=== PATIENT | male | born 1945 | race Caucasian/White ===

== ENCOUNTER 2016-08-26 12:04 | Inpatient (IN) | payer MEDICARE ==
[~2016-08-26] VITALS: Ht 180.3 cm; Wt 96.1 kg
--- NOTE | ~2016-08-26 | ECH ---
Transthoracic Echocardiography Report (TTE) Demographics Patient Name TAMAR MURRAY Date of Study 08/27/2016 Patient Number [id number] Visit Number [id number] Date of 1945 Room Number 314 Accession Number [id number] Gender Male Age 70 year(s) Referring King Santy Green MD Cocoa Mill Operator Lisa Chavez Physician Valdemar Hair RDCS, MD Physician Interpreting Phoebe Salguero MD Business Performance Manager Physician Supervising Ordering Physician King Santy Green MD, MD/MLP Nurse Stress Clay Digger Conclusions Summary Technically difficult exam. The estimated left ventricular ejection fraction is 50-55%. Moderate to severely dilated right ventricle with normal function. The left atrium is mildly dilated by LA volume index measurement. The right atrium is severely dilated. Procedure Type of Study TTE procedure:Echo Limited SF. Procedure Date Date: 08/27/2016 Start: 11:43 Technical Quality: Fair due to poor acoustical window. Indications:Elevated Troponin, Atrial fibrillation and cardiomyopathy, unspecified. Appropriate Use Criteria: 9 Height: 71 inches Weight: 204 pounds BSA: 2.13 m Rhythm: Atrial fibrillation HR: 114 bpm BP: 106/67 mmHg M-Mode/2D Measurements LV Diastolic Dimension: 4.5 cm LV Systolic Dimension: 3.4 cm LV Septum Diastolic: 0.8 cm LV PW Diastolic: 0.83 cm AO Root Dimension: 3.09 cm LA Dimension: 4.66 cm RV Diastolic Dimension: 3.61 cm LA volume: 84.96 ml LA volume index: 40 ml/m RV Base: 5 cm RV Mid: 3.1 cm TAPSE: 2.5 cm Doppler Measurements Estimated RAP:10 mmHg RA Area: 32.74 cm Findings Left Ventricle Normal left ventricle size and function. Right Ventricle Moderate to severely dilated right ventricle with normal function. Left Atrium The left atrium is mildly dilated by LA volume index measurement. Right Atrium The right atrium is severely dilated. Mitral Valve Moderate mitral annular calcification. Aortic Valve The aortic valve is mildly sclerotic. Tricuspid Valve Normal tricuspid valve structure and function. Pulmonic Valve The pulmonic valve is not well visualized. Pericardial Effusion No evidence of pericardial effusion. Miscellaneous Visualized portions of the aortic root and ascending aorta appear normal in size. Pleural Effusion No evidence of pleural effusion. Signature
[~2016-08-26 12:04] MED LIST: BACTRIM DS DPS1 TAB PO; BYSTOLIC5 MG PO; CALTRATE-600 D600 MG PO; CLARITIN DPS10 MG PO; CORTEF DPS5 MG PO; DULERA 200/58.8 GM IH; ESTER-C 1,0001 EACH PO; HABITROL DPS21 MG TD; HUMALOG100 UNIT/1 SQ; HYDROCODONE 10M10 MG PO; INCRUSE ELLI62.5 MCG IH; KEFLEX-DPS500 MG PO; LAMISIL250 MG PO; LASIX DPS20 MG PO; LEUTIN PO; MAG-OX400 MG PO; OXY-CONTIN10 MG PO; PRILOSEC DPS20 MG PO; SYMBICORT160 MCG/6 IH; THERAPEUTIC MUL1 TAB PO; TYLENOL DPS325 MG PO; VITAMIN D-32000 UNI1 PO; ZESTRIL DPS10 MG PO; ZYLOPRIM-DPS300 MG PO
--- NOTE | 2016-08-28 08:16 | ER ---
ADMIT: 08/26/2016 RM/LOC: 314 [facility] MR#: [id number] 2620 [facility] [address] [place] [phone] [place] [address] Emergency Room Report SEX: M AGE: 70 : 1945 DATE: 08/26/2016 ADDENDUM: A 70-year-old white male coming in by private vehicle, actually a [employer] type of camper that the drove up in a parking lot. She could not get him out. We could not get him out. Fire Department called to help and transport him to the room. His states he has been weak and kind of tired recently. We got in here. He was hypoxic with low blood pressure. We started to correct that. He is little tachycardic as well. Remarkably, his blood gas were too bad at 7.34, pCO2 of 55, PO2 of 133. He does have COPD and continues to smoke. His white count was 10, hemoglobin is 12.2. His lactate was normal at this time. However, he was in acute renal failure at creatinine of 6.1 as well as probably a non-STEMI with a troponin of 1.73. At this time, he also could not entirely rule out sepsis. We fluid resuscitated him, added Levophed and then gave him Zosyn and vancomycin. At this time, he is still full code. I spoke with Dr. Aldrich who advised the family of the seriousness and his critical condition. BiPAP is on at 105, and he will be admitted to the unit. CONDITION ON DISCHARGE: Critical. Romel Tilley MD/ annalise JOB #: [id number] CC: Romel Aldrich MD, Attending Physician Romel Aldrich MD, Family Physician
--- NOTE | 2016-08-29 15:28 | CO ---
ADMIT: 08/26/2016 RM/LOC: 314 [facility] MR#: [id number] [address] [id number] [place] [id number] Consultation SEX: M AGE: 70 : 1945 DATE OF CONSULTATION: 08/27/2016 ATTENDING PHYSICIAN: Romel Aldrich CONSULTING PHYSICIAN: Christi Gusman MD REASON FOR CONSULTATION: Acute kidney injury. HISTORY OF PRESENT ILLNESS: The patient is a 70-year-old gentleman, who was brought to the emergency room yesterday by his after he was found to be unresponsive/hyporesponsive. He was noted to be in shock and was profoundly hypotensive and required pressor support. His pressors have been off earlier this morning. He is originally from around the [place] area. They were down at [facility] this past week. He was in his camper and did not have his air conditioning working too well. His oral intake had been severely decreased as well. No documented fevers prior to coming to the hospital. He had been eating and drinking poorly as mentioned above and when he was found to have a change in his mental status, his brought him to the hospital. He is being treated with antibiotics. His blood pressures are somewhat better and he is off pressors now. He was also noted to have elevated cardiac enzymes and Cardiology is following him for the same. He has a Ochoa catheter in situ and is making some urine now. He was intubated but he is currently on BiPAP. He reports that his breathing is fair. He is very thirsty. He denies any anginal symptoms. The Ochoa catheter is uncomfortable to him but denies any urinary complaints prior to being hospitalized. Denies any skin rash. He has some appetite and would like to eat if possible. He otherwise feels weak, but denies any dizziness or lightheadedness. Denies any focal neurologic complaints. REVIEW OF SYSTEMS: A complete review of systems is negative in detail except as mentioned in history of present illness above. PAST MEDICAL HISTORY: 1. Klinefelter's disease. 2. Parkinson's disease. 3. Chronic pain. 4. Bipolar disorder. 5. Dyslipidemia. 6. Hypertension. 7. COPD. 8. Tobacco abuse. 9. Squamous cell carcinoma of the lung. 10.Chronic atrial fibrillation. 11.DVTs and pulmonary embolism. 12.Cervical spine fusion. 13.GERD. 14.Restless legs syndrome. 15.Gout. 16.Adrenal insufficiency. ADMIT: 08/26/2016 RM/LOC: 314 [facility] MR#: [id number] [address] [place] [id number] TAMAR MURRAY [place] [address] Consultation SEX: M AGE: 70 : 1945 MEDICATIONS: Reviewed in the chart. ALLERGIES: OXYCODONE AND BEE STINGS. SOCIAL HISTORY: Lives with his . He is . He continues to smoke cigarettes on a daily basis. He reports having a beer over the weekend. Denies any recreational drug use. FAMILY HISTORY: Mother has kidney disease-nature and etiology unknown. Nobody in the family has had to be on renal replacement therapy. PHYSICAL EXAMINATION: VITAL SIGNS: Temperature 98 Fahrenheit, pulse 103, blood pressure 96/67. His in's and out's for the last 24 hours have been almost 6 L of fluid and 750 mL of urine. GENERAL: He is wearing BiPAP and is tachypneic. HEENT: Head is nontraumatic and normocephalic. Pale conjunctivae. NECK: Supple without any JVD. CVS: Irregular S1, S2 heard. No rubs, murmurs, or gallops. ABDOMEN: Soft, nontender. EXTREMITIES: No edema. CHEST: Clear to auscultation but breath sounds are decreased. NEUROLOGIC: He is alert and oriented. He is able to move all his extremities. PSYCHIATRIC: He is very anxious. MUSCULOSKELETAL: Major joints within normal. Range of motion within normal limits. LABORATORY DATA: Reviewed. His BMP another labs from this morning are pending, but his creatinine yesterday was 6.1 with a potassium of 4.6, CO2 of 32, and sodium 144. His ABG this morning shows a pH of 7.385, pCO2 of 36.2 with a PO2 of 82.9. His calcium yesterday was 9.2 and a phosphorus of 8.5. His CK was elevated to 1496 and his troponin was elevated to 1.73. His hemoglobin was 8.6. Urinalysis with 1+ protein, negative blood, and 1+ leukocyte esterase. He had multiple hyaline casts in his urine. Blood cultures x2 were drawn yesterday and then he had one out of two Staphylococcus aureus. ASSESSMENT AND PLAN: ADMIT: 08/26/2016 RM/LOC: 314 [facility] MR#: [id number] [address] [place] [phone] TAMAR MURRAY [address] [place] [address] [place] [address] Consultation SEX: M AGE: 70 : 1945 1. Acute kidney injury-this is most likely secondary to ischemic acute tubular necrosis. His labs are pending from this morning. I will monitor his kidney function, electrolytes as well as acid base status closely. There is no emergent indication for renal replacement therapy, but should their view, him and his were agreeable to dialysis if needed. Continue supportive care in the meantime, maintain hemodynamics and avoid nephrotoxins such as NSAIDs, IV contrast, or Fleet enemas. 2. Hyperphosphatemia-in the setting of renal failure. Monitor for now. 3. Septic shock/lactic acidosis-he is on antibiotics and these are being dosed by pharmacy at this time. Thank you for this consultation. Please do not hesitate to contact with any questions. Christi Gusman MD/ annalise JOB #: [id number] CC: Romel Aldrich, Attending Physician Romel Aldrich, Family Physician
--- NOTE | 2016-08-31 13:39 | CO ---
ADMIT: 08/26/2016 RM/LOC: 314 [facility] MR#: [id number] 2620 [facility] [address] [place] [id number] [place] [address] Consultation SEX: M AGE: 70 : 1945 DATE OF CONSULTATION: 08/27/2016 ATTENDING PHYSICIAN: Romel Aldrich CONSULTING PHYSICIAN: Ramya Mcgrath APRN TIME IN: 1300 hours. TIME OUT: 1345 hours. REASON FOR CONSULTATION: Supportive care consultation was requested by Dr. Aldrich for discussion of goals for care. HISTORY OF PRESENT ILLNESS: Mr. Tyson is a 70-year-old male with history of Parkinson disease, bipolar disorder, as well as COPD and a history of squamous cell lung cancer which he states is in remission. He was admitted back in 12/2015 after having a new CVA. At that time, he was also found to have cardiomyopathy with an EF of 25%. He does have a repeat echocardiogram planned for today. He was admitted on 08/26 after being found unresponsive by his . 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 He had been acting bizarre and was eventually found unresponsive. Evaluation in the emergency room revealed acute on chronic respiratory failure with COPD exacerbation. He did screen positive for sepsis and blood cultures are positive. Additionally, he is in acute renal failure. Cardiology is following for elevated troponin as well as his history of cardiomyopathy. Apparently, the patient refused intubation on admission. He has been wearing BiPAP as needed. He has actually improved today and is tolerating wearing the nasal cannula for periods of time. Due to his complexities, Supportive Care consultation was requested to discuss goals for care. In terms of advanced directives, the patient is a full code. The patient's durable [id number] for healthcare is his , Tanya tyson, whose phone number is [phone] and [phone]. The patient also has a living will. Symptomatically, the patient is comfortable. He denies any major complaints. He is weak and debilitated. PAST MEDICAL HISTORY: Parkinson disease, Klinefelter disease, chronic pain, bipolar disorder, hyperlipidemia, hypertension, COPD, squamous cell carcinoma of the lung, persistent tobacco abuse, chronic atrial fibrillation, DVT and PE, cervical spine fusion, GERD, restless legs syndrome, gout, adrenal insufficiency. ALLERGIES: THE PATIENT IS ALLERGIC TO OXYCODONE AND BEE STING. CURRENT MEDICATIONS: Please see the patient's MAR for specific routes and dosages. Her current medications are as follows: 1. Levaquin. ADMIT: 08/26/2016 RM/LOC: 314 [facility] MR#: [id number] [address] [place] [phone] TAMAR TYSON [address] [place] [address] Consultation SEX: M AGE: 70 : 1945 2. Zosyn. 3. Xarelto. 4. Nitro-Bid. 5. Levophed. 6. DuoNeb. 7. Neosporin. 8. Solu-Medrol. 9. Tylenol. 10.Nitrostat. SOCIAL HISTORY: The patient is . He does not have children. He is a heavy smoker. He does not use illicit drugs. He does not drink alcohol currently. FAMILY HISTORY: Reviewed and positive for carcinoid tumor in his father. FUNCTIONAL REVIEW: Prior to his hospital stay, he was at home. His helped him with ADLs occasionally. It sounds like he could still drive a motorcycle. His palliative performance scale prior to admission was around 60%. Currently, he is in bed. He is mainly assistance. He is tired. His current palliative performance scale is 40%. REVIEW OF SYSTEMS: A 10-point review of systems was completed and other than those pertinent positives and negatives mentioned in the HPI, it is negative. PHYSICAL EXAMINATION: GENERAL: The patient is examined in the bed. He is in no acute distress. VITAL SIGNS: Temperature 98.0, pulse 107, respirations 21, blood pressure 109/67, and oxygen 94% on oxygen via nasal cannula. HEENT: Head is normocephalic. Pupils are 3 mm and brisk. Oral mucosa pink and moist. Fair dentition. NECK: Supple. RESPIRATORY: Respirations are equal, nonlabored at rest. LUNGS: Coarse throughout. CARDIOVASCULAR: Rate and rhythm regular without murmurs, rubs, or gallops. GASTROINTESTINAL: Soft and nontender. Bowel sounds are positive. MUSCULOSKELETAL: Generalized weakness. INTEGUMENTARY: Skin turgor is fair. No obvious rashes or wounds noted. NEUROLOGIC: Alert and oriented x3. He will follow commands. PSYCHIATRIC: Calm and cooperative. No agitation noted. IMPRESSION: 1. Physical debility. 2. Fatigue. 3. Malaise. 4. Moderate protein-calorie malnutrition. 5. Respiratory failure. 6. Chronic obstructive pulmonary disease with acute exacerbation. ADMIT: 08/26/2016 RM/LOC: 314 [facility] MR#: [id number] [address] [place] [id number] TAMAR TYSON [address] [place], [place] [address] [address] Consultation SEX: M AGE: 70 : 1945 7. Acute renal failure. 8. Sepsis. 9. Elevated troponin. 10.Parkinson disease. 11.Bipolar disorder. 12.History of squamous cell lung cancer which is stable per the patient report. 13.History of cerebrovascular accident. 14.Palliative care. 15.The patient is a full code. PLAN: 1. I was able to meet with the patient and his at the bedside. We reviewed his overall status and goals for the time ahead. At this point, the goal per the patient is ongoing aggressive care with hope of improvement with eventually being able to get back home where he lives with his . He does agree to ongoing discussions with supportive care pending his status. He is aware that he is very sick and that he has a road ahead of him to get back to where he was. 2. We did review code status at length including the burden versus benefit of full code status versus do not resuscitate/do not intubate status. The patient is not thrilled with the idea of being intubated, however, he does state that he would not want to . At this time, he directs a full code status including intubation, CPR, and defibrillation. I am very clear with him that these interventions may be quite difficult for him to withstand given his multiple medical issues, and he verbalizes understanding of this. The patient's is prepared to make to have decisions if needed should he be intubated and not be able to get off the ventilator. The patient is very clear that he would not want to live correction on ventilator support. 3. It is of note that the Supportive Care TAG PRESS OPERATOR is unavailable tomorrow, but will follow up with the patient on 08/29when I return. We would like to thank Dr. Aldrich for the invitation to participate in this patient's care. Total consultation time was 45 minutes from 1300 hours to 1345 hours 30 minutes from 1305 hours to 1335 hours spent [id number] with the patient and family discussing goals for care and providing counseling and support. The plan of care was discussed with nursing. Ramya Mcgrath APRN/ yomil JOB #: [id number] CC: Romel Aldrich, Attending Physician Romel Aldrich, Family Physician
--- NOTE | 2016-08-31 16:25 | CO ---
ADMIT: 08/26/2016 RM/LOC: 314 [facility] MR#: [id number] [address] [address] [place] [address] Consultation SEX: M AGE: 70 : 1945 DATE OF CONSULTATION: 08/27/2016 ATTENDING PHYSICIAN: Romel Aldrich CONSULTING PHYSICIAN: Santy Brock MD CONSULTING PHYSICIAN: Romel Aldrich MD REASON FOR CONSULT: Elevated troponin. This is Courtney Ge RN, scribing for Dr. Santy Brock. HISTORY OF PRESENT ILLNESS: Rui is a pleasant 70-year-old gentleman, I have been asked to see in Cardiology consultation by Dr. Aldrich for elevated troponin. He was seen in hospital in December by myself for embolic stroke and has history of DVT/PE along with permanent atrial fibrillation. In December, he had cardiomyopathy with an EF of 25% to 30%. He also has history of hypertension, hyperlipidemia, and ongoing tobacco use. He then followed up with Dr. Asaf Durand in [place]. In January repeat echocardiogram showed EF of 50%. He was last seen in [place] by Dr. Asaf Durand in April. At that time, he had reported, he was tolerating his medications well and he had good fluid status and was ordered to follow up in four months with 24 hour Holter prior. 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 Apparently, he had not been using his oxygen, which he is O2 dependent with his COPD history. Because the concentrator was not working and he was also continuing smoking and there was question of whether he was taking his medications. His said he was. On Saturday, he was confused and so by the late Saturday night, early Saturday morning, he laid down in his camper were there was no air conditioning and had decreased level of responsiveness. His states that for over 30 hours, he did not eat or drink anything. Did not take any medications. He was not using oxygen and was not responding much. When they were getting ready to take the camper back to where they live, she states that he still was not responding to her and so she ended up calling EMS, who brought them into the hospital. On arrival to the hospital, yesterday's labs demonstrated creatinine of 6.1 with a BUN of 43. Initial cardiac enzymes are elevated with a CK of 1496, MB of 16.5 and troponin of 1.73. Labs were repeated this morning and are pending. He also had positive blood cultures x1 for gram positive cocci. He was hypotensive on arrival, requiring IV medication for support, which has been discontinued and he has maintained good blood pressure. Since that time. He is mildly tachycardic with heart rates in the 110s. He is currently on BiPAP. He denies any chest pain, increased shortness of breath, palpitations. Currently, he did feel like he had palpitations in the camper. He denies any syncope but does state that he was asleep for over 30 hours recently. EKG did not show any significant ST-T changes. He was in atrial fibrillation, which he has permanent atrial fibrillation for. ADMIT: 08/26/2016 RM/LOC: 314 [facility] MR#: [id number] [address] [place] [id number] [place] [facility] [place] [address] Consultation SEX: M AGE: 70 : 1945 PAST MEDICAL HISTORY: Prior cardiomyopathy with improved ejection fraction, permanent atrial fibrillation, multiple DVT and history of PE, tobacco use, hypertension, hyperlipidemia, gastroesophageal reflux disease, cervical spine stenosis, osteoarthritis, gout, Klinefelter syndrome, squamous cell lung cancer diagnosed in 2010 on the right, CVA in December of 2015, Parkinson's, bipolar disorder, severe COPD, oxygen dependent. PAST SURGICAL HISTORY: Includes spine fusion and bilateral total knee arthroplasty. ALLERGIES: OXYCODONE. MEDICATIONS: Current medications include DuoNeb q.6 hours nebulizer, Levaquin IV 750 mg IV q.8 hours, Solu-Medrol 125 q.8 hours, IV Zosyn 3.375 g IV q.12 hours. FAMILY HISTORY: Positive family history of dad having carcinoid tumor. No family history of coronary artery disease noted. SOCIAL HISTORY: Rui is . He lives at home with his up in [place]. He follows with Dr. Polo in [place]. He has no history of drug use or alcohol use. Denies any excessive caffeine. He does smoke cigarettes and has done so for several years. REVIEW OF SYSTEMS: GENERAL: Increased fatigue with the essential unresponsiveness on arrival. No recent fever. No weight changes have been noted. EYES: Denies double vision, blurred vision, cataracts, or glaucoma. ENT: Denies hearing loss or problems with nose, mouth or throat. PULMONARY: Severe COPD, oxygen dependent at home. off oxygen for several days. No hemoptysis or obstructive sleep apnea. He is currently on BiPAP. GASTROINTESTINAL: History of gastroesophageal reflux disease. Denies heartburn or difficulty swallowing. No change in bowel habits. Denies dark or bloody stools. No history of ulcers, hiatal hernia, or gallbladder or liver disease. GENITOURINARY: Denies dysuria, hematuria, nocturia, urinary tract infection, or kidney stones. Denies history of renal insufficiency or failure. MUSCULOSKELETAL: History of cervical spine stenosis, osteoarthritis, and gout. ENDOCRINE: history of Klinefelter syndrome. No diabetes or thyroid issues. HEMATOLOGIC: History of squamous cell lung cancer in 2010 on the right. No anemia or bleeding issues. NEUROLOGIC: History of CVA in December of 2015, history of Parkinson's disorder. Denies any seizures or headaches. PSYCHIATRIC: History of bipolar disorder. Denies depression or anxiety issues currently. PHYSICAL EXAMINATION: VITAL SIGNS: Blood pressure 118/78, heart rate 112, ADMIT: 08/26/2016 RM/LOC: 314 [facility] MR#: [id number] [address] [address] [place] [address] Consultation SEX: M AGE: 70 : 1945 respirations 14, temperature 98.0, and oxygenation 97% on O2. SKIN: [place], warm and dry. EYES: Sclerae clear. No xanthelasmas. ENT: Oral mucosa is pink and moist. No jugular venous distention or carotid bruits. LUNGS: Coarse breath sounds throughout. Positive wheezes. HEART: Irregularly irregular. No murmurs, gallops, or rubs. ABDOMEN: Soft and nontender. MUSCULOSKELETAL: Gait is normal. EXTREMITIES: Peripheral pulses palpable. No clubbing, cyanosis or edema. PSYCHIATRIC: Alert and oriented. Mood and affect are appropriate. DIAGNOSTIC DATA: Chest x-ray on 08/27 showed right-sided atelectasis with inflammation. Lab yesterday had blood cultures positive x1 for gram-positive cocci. Sodium 144, potassium 4.6, BUN 43, creatinine 6.1, glucose 158, AST 93, ALT 14, magnesium 2.8, CK 1496, MB 16.5, troponin 1.73, INR 1.07. Repeat lab today on 08/27 BMP and cardiac enzymes are pending at this time. White blood cell count 5.4, hemoglobin 8.6, hematocrit 27.4, and platelets of 90. ASSESSMENT AND PLAN: 1. Unresponsiveness. 2. Elevated troponin. 3. Acute kidney injury. 4. Cardiomyopathy. 5. Hypotension. 6. Chronic obstructive pulmonary disease. 7. Permanent atrial fibrillation. His blood pressure looks better. I would continue with fluid resuscitation. I think a lot of this may be dehydration. His elevated troponin is also likely ADMIT: 08/26/2016 RM/LOC: 314 [facility] MR#: [id number] 2620 [facility] [address] [place] [id number] [place] [address] Consultation SEX: M AGE: 70 : 1945 due to his acute illness and hypoxia. He will need ischemic evaluation in the future catheterization versus stress test at some point. I will recheck a limited echo to make sure ejection fraction is stable from January. I will continue to follow him closely and restart his anticoagulation withdrawal to 50 mg p.o. daily. Thank you for the consultation. "I have read and agree with the documentation that has been completed regarding this visit. By signing this record, I attest that the documentation was completed in my physical presence and is an accurate record of the encounter." Courtney Ge RN / Santy Brock MD / annalise JOB #: [id number] CC: Romel Aldrich, Attending Physician Romel Aldrich, Family Physician
--- NOTE | 2016-08-31 20:34 | OR ---
ADMIT: 08/26/2016 RM/LOC: 314 [facility] MR#: [id number] [address] [address] [place] [address] Operative/Delivery Room Report SEX: M AGE: 70 : 1945 SURGERY DATE: 08/31/2016 SURGEON: Amish Cm MD PROCEDURE: Flexible fiberoptic bronchoscopy. PREPROCEDURE DIAGNOSIS: Respiratory failure with bilateral infiltrates. POSTPROCEDURE DIAGNOSES: 1. Moderate exudative secretions, not overtly purulent. 2. Narrow right middle lobe, unclear if prior surgical intervention at right middle lobe. 3. No endobronchial lesions. SPECIMEN OBTAINED: Bronchoalveolar lavage performed via left upper lobe (LB3). This is a 70-year-old male, with respiratory failure and pulmonary infiltrates. A flexible fiberoptic bronchoscopy is indicated. Informed consent was obtained from the family and they understand risks and benefits including, but not limited to, those listed on the consent form and agreed to proceed. The patient is currently sedated on the ventilator. Flexible fiberoptic bronchoscopy is performed via existing endotracheal tube. Cardiac rhythm, blood pressure, and oxygen saturations are monitored throughout the procedure. Visualized portion of the trachea is normal. Laura is sharp and mobile. Examination of tracheobronchial tree (RV 1 through 10 and LV 1 through 10) reveals a [id number] amount of exudative secretions, which seem to be worse on the right than on the left. There is a little bit of mucus plugging present. This was all cleared with therapeutic suction. Examination to the segmental level reveals no evidence of endobronchial lesion. I would mention ADMIT: 08/26/2016 RM/LOC: 314 [facility] MR#: [id number] [address] [address] [place] [address] Operative/Delivery Room Report SEX: M AGE: 70 : 1945 that the right middle lobe is very narrowed. It has the appearance that there has been previous surgical intervention at the right middle lobe and therefore I did not aggressively advance the scope into the right middle lobe. A bronchoalveolar lavage was performed via the left upper lobe (LB3). The patient tolerated the procedure well. There were no immediate complications. Cardiac rhythm, blood pressure, and oxygen saturations remained stable. The above specimens were sent for appropriate cytology and microbiologic studies. Amish Cm MD/ annalise JOB #: [id number] CC: Romel Aldrich, Attending Physician Romel Aldrich, Family Physician Romel Aldrich MD
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
--- NOTE | 2016-09-14 12:27 | DS ---
ADMIT: 08/26/2016 RM/LOC: 402 [facility] MR#: [id number] [address] [address] [place] [address] Discharge Summary SEX: M AGE: 70 : 1945 ADMISSION DATE: 08/26/2016 DISCHARGE DATE: 09/08/2016 FINAL DIAGNOSES: 1. Respiratory failure, acute on chronic, hypoxic. 2. Healthcare associated pneumonia. 3. Acute on chronic diastolic congestive heart failure. 4. Araceli on his BAL (bronchoalveolar lavage). 5. Pleural effusion, status post thoracentesis which was transudative. 6. Severe chronic obstructive pulmonary disease. 7. Dysphagia, patient refusing to follow specified diet. 8. Parkinson's. 9. Klinefelter syndrome. 10.Atrial fibrillation. 11.Anticoagulation. 12.Diabetes. CONSULTANTS: 1. Supportive Care. 2. Cardiology. 3. Nephrology. 4. Pulmonology. PROCEDURES: Bronchoscopy done on the . REASON FOR ADMISSION: See dictated H and P, but briefly, this is a 70-year- old gentleman who presented with unresponsive type episode. Initially he was found to be severely hypotensive and tachycardic and unresponsive. He also had a fever. He was admitted to the ICU. Was treated to get his blood pressure up, given IV steroids. He had acute kidney injury and had Cardiology see him. He had an equivocal troponin and Cardiology did evaluate him for this. He had a central line placed. Ultimately, needed to be intubated and subsequently had bilateral infiltrates with his respiratory failure. He had a narrow right middle lobe and moderate exudative secretions on the BAL and evidence of some mucous plugging. He gradually improved from respiratory standpoint. He was transferred back to the floor. Then became hypotensive and was transferred back to the intensive care unit, given some IV fluids, steroid bolus. After a little more fluid his blood pressure came back up and he felt a little better. He was transferred back to the floor and did well. There kidney function maintained. Blood sugars were maintained with some sliding scale insulin and mealtime insulin. Fluid status was appropriate. Heart rate was stable so he was set up for discharge. Unfortunately, he has underlying arthritis and says he is unable to walk because of the pain. Says he can only walk with a brace which of course was not available here in the hospital as he needed to pick it up in [place]. However, [place] would not dispense it when he is an inpatient. The patient did want to go straight home from the hospital as he can't walk without his brace and he was not going to be able to get his brace until Saturday and his discharge date was Saturday. He reported to us he was going to stay in the guest house for the weekend. ADMIT: 08/26/2016 RM/LOC: 402 [facility] MR#: [id number] [address] [place] [id number] T[address] [place] [id number] Discharge Summary SEX: M AGE: 70 : 1945 DISCHARGE MEDICATIONS: 1. Cytotec 200 mcg b.i.d. 2. Prednisone 20 mg x2 days, then 10 mg daily after that. 3. Diflucan 200 mg daily for 10 days. 4. Eldepryl 5 mg daily. 5. Potassium chloride 40 mEq b.i.d. 6. Digoxin 0.125 mg daily. 7. Lopressor 150 mg b.i.d. 8. Lyrica 150 mg b.i.d. 9. Magnesium 400 mg b.i.d. 10.Pepcid 20 mg b.i.d. 11.Requip 2-4 mg p.o. at bedtime. 12.Sinemet 1 mg p.o. b.i.d. 13.Singulair 10 mg daily. 14.Xarelto 20 mg daily. 15.Zoloft 100 mg b.i.d. 16.Dulera 200/58.8, two puffs inhaled b.i.d. 17.Spiriva 1 puff daily. 18.NPH insulin 5 units q. 12 and moderate dose sliding scale with each meal of NovoLog. 19.He has a Habitrol patch 14 mg daily. 20.Hydrocodone 10/325 1 q.6 hours p.r.n. hard script for #30 was given. 21.Lasix 80 mg p.o. daily. FOLLOWUP: Will have him follow up with Dr. Aldrich and 1-2 weeks. He will have 2 L of oxygen on at all times. He should have a soft nectar thick liquid diet. CBC and BMP in 1 to 2 weeks as well. Also have ProAir two puffs q.i.d. This will be called in as well. Rohith López MD/ vdg JOB #: [id number] CC: Romel Aldrich MD, Attending Physician Romel Aldrich MD, Family Physician Romel Aldrich MD
[2016-09-16] MEDS ORDERED: XARELTO20 MG PO (14:59)
[2016-09-16] MEDS ORDERED: MONTELUKAST SOD10 MG PO (14:59)
[2016-09-16] MEDS ORDERED: REQUIP DPS2 MG PO (15:00)
[2016-09-16] MEDS ORDERED: CARBIDOPA-LEVO1 EAC7 PO (15:00)
[2016-09-16] MEDS ORDERED: MAGOX 400400 MG PO (15:00)
[2016-09-16] MEDS ORDERED: LYRICA75 MG PO (15:00)
[2016-09-16] MEDS ORDERED: LASIX DPS40 MG PO (15:01)
[2016-09-16] MEDS ORDERED: CYTOTEC DPS200 MCG PO (15:01)
[2016-09-16] MEDS ORDERED: FAMOTIDINE20 MG PO (15:01)
[2016-09-16] MEDS ORDERED: KLOR-CON M2020 ME1 PO (15:03)
[2016-09-16] MEDS ORDERED: ZOLOFT100 MG PO (15:04)
[2016-09-16] MEDS ORDERED: DIGOXIN125 MCG PO (15:04)
[2016-09-16] MEDS ORDERED: [UNRECOGNIZED DRUG - OTHER] PO (15:04)
[2016-09-16] MEDS ORDERED: TOPROL XL DPS50 MG PO (15:04)
[2016-09-16] MEDS ORDERED: DULERA 200/58.8 GM IH (15:05)
[2016-09-16] MEDS ORDERED: DIFLUCAN DPS200 MG PO (15:06)
[2016-09-16] MEDS ORDERED: SPIRIVA18 MCG IH (15:06)
[2016-09-16] MEDS ORDERED: DELTASONE DPS10 MG PO (15:06)
[2016-09-16] MEDS ORDERED: NOVOLIN N100 UNIT/1 SQ (15:07)
[2016-09-16] MEDS ORDERED: NOVOLOG100 UNIT/2 SQ (15:07)
[2016-09-16] MEDS ORDERED: HABITROL TD (15:08)
[2016-09-16] MEDS ORDERED: PROAIR RESPICL90 MCG IH (15:08)
[2016-09-16] MEDS ORDERED: DUONEB DPS3 ML IH (15:09)
[2016-09-16] MEDS ORDERED: HYDROCODON-ACE1 EAC6 PO (15:13)
--- NOTE | 2016-09-18 12:02 | CO ---
ADMIT: 08/26/2016 RM/LOC: 314 [facility] MR#: [id number] [address] [facility] [address] [place] [phone] [place] [address] Consultation SEX: M AGE: 70 : 1945 DATE OF CONSULTATION: 08/29/2016 ATTENDING PHYSICIAN: Romel Aldrich CONSULTING PHYSICIAN: Александр Lucas MD Pulmonary Critical Care Consultation. REASON FOR CONSULTATION: Hypoxemia, respiratory failure. HISTORY OF PRESENT ILLNESS: The patient is a 70-year-old gentleman, who was previously been admitted multiple times, and he is originally from [place]. He has a history of Parkinson's disease, bipolar disorder, severe COPD, and prior history of squamous cell carcinoma of the lung, continued tobacco abuse, COPD that is oxygen-dependent, chronic atrial fibrillation, history of multiple DVTs, and history of pulmonary embolism. He was found unresponsive on admission to the hospital and subsequently was admitted to the ICU. He was felt to have potentially pneumonia, but also had acute kidney injury with sepsis, significant amount of fluids have been given over the last three days and his fluid balance is 9 L. he has rapid atrial fibrillation. Yesterday, he was doing better, but today he is requiring 10-15 L of oxygen blood through his BiPAP device at 18/8. He is awake and alert and oriented. He denies chest pain. He is dyspneic. Sputum is slightly productive. There are no fevers or chills. Currently, denies abdominal or chest pain. No nausea or vomiting. PAST MEDICAL HISTORY: Includes; 1. Squamous cell carcinoma pf the lung, unknown status, but reported as stable. 2. COPD which is oxygen dependent with ongoing tobacco abuse. 3. Parkinson's disease. 4. Bipolar disorder. 5. Hyperlipidemia. 6. Hypertension. 7. Chronic pain syndrome. 8. Klinefelter's syndrome. 9. History of DVT with PE. 10.Chronic atrial fibrillation. 11.Reflux. 12.Restless legs syndrome. 13.Adrenal insufficiency. 14.Gout. MEDICATIONS: Reviewed from electronic medical record as well as the hospital chart. He is currently on Xarelto among his other medications. FAMILY HISTORY: Reviewed from the intake history and physical. Father had a carcinoid tumor. ADMIT: 08/26/2016 RM/LOC: 314 [facility] MR#: [id number] [address] [address] TAMAR MURRAY [place] [id number] Consultation SEX: M AGE: 70 : 1945 SOCIAL HISTORY: Heavy tobacco smoking despite having oxygen. Minimal alcohol. . Lives with his in [place]. No drugs. REVIEW OF SYSTEMS: Not obtainable at this point due to his mental status changes. PHYSICAL EXAMINATION: VITAL SIGNS: His temperature was 98.9. His pulse was 140. His respirations were 24. His blood pressure was 110/72. HEENT: Within normal limits. NECK: No JVD. No bruits. HEART: Irregularly irregular with tachycardia. LUNGS: Bilateral rhonchi and wheeze. ABDOMEN: Soft. Bowel sounds positive. Nontender. Nondistended. No organosplenomegaly. EXTREMITIES: Shows trace edema. No cyanosis or clubbing. GENITORECTAL: Deferred. NEUROLOGICAL: Intact. LABORATORY TESTING: Currently, today, arterial blood gas reveals a pH of 7.35 with pCO2 46, and a PO2 of 62. BMP today shows that his sodium is 146. His BUN is 36, and his creatinine is 1.4. Phosphorus is low at 1.9. Anion gap was 9. Creatine kinase was 383. His troponin was elevated at 0.896. CBC; white count 10,600, hemoglobin 12.6, platelets were 111. Chest x-ray, not done today will be ordered, and pending. Urine myoglobin was normal on initial evaluation. Lactic acid was normal as of two days ago. Chest x-ray on 08/26 on admission, showed a perihilar opacity, mild cardiomegaly, decreasing right pleural effusion compared to prior testing in December 2015. IMPRESSION: 1. Acute hypoxemic respiratory failure with an element of hypercapnia. He has underlying severe chronic obstructive pulmonary disease which is oxygen dependent with continued tobacco addiction. I believe at this point, his acute respiratory failure secondary to fluid overload, a repeat stat chest x-ray is pending currently. I think that with his positive fluid balance of 9 L, he is most likely fluid overloaded giving him acute on chronic respiratory failure compared to the last few days. On review with the nurses yesterday, he was doing much better and now he has developed increasing wheezing, cough, rales, and need for BiPAP. Intravenous Lasix has been ordered and IV fluids have been discontinued. Cardiology is following the patient. Intravenous steroids for ongoing COPD exacerbation and antibiotics for pneumonia have been ongoing. 2. Sepsis. This is resolved with normality of blood pressure. 3. He has rapid atrial fibrillation. Cardiology has started him on intravenous Lopressor and Cardizem. 4. He has a history of deep vein thrombosis and pulmonary embolism. He is on Xarelto 20 mg daily and he is in too much distress to order a CT of the chest. We will order leg studies to see if there are any acute clots that we may want to consider giving either Lovenox or intravenous ADMIT: 08/26/2016 RM/LOC: 314 [facility] MR#: [id number] [address] [place] [phone] [place] [address] Consultation SEX: M AGE: 70 : 1945 heparin. 5. Code status. We discussed today. He does want to be intubated, and have full code status as of now. Initially, he said no. Prophylaxis will be given with Pepcid for GI prophylaxis given his respiratory failure and ICU status. 6. History of squamous cell carcinoma. The patient states that he is "in remission," and chest x-ray on admission shows a right perihilar opacity, but we have no CTs to compare to. At some point, this may need to be considered. 7. Acute kidney injury which has resolved with fluid resuscitation. Creatinine has normalized. 8. Hypernatremia, which is resolved. Thank you for having me see him. We will continue to monitor. I believe with diuretics he will improve and will not require intubation with mechanical ventilation. Александр Lucas MD/ annalise JOB #: [id number] CC: Romel Aldrich, Attending Physician Romel Aldrich, Family Physician
[2016-10-31] MEDS ORDERED: LEVAQUIN DPS750 MG PO (12:50)
[2016-10-31] MEDS ORDERED: PROTONIX40 MG PO (12:51)
[2016-10-31] MEDS ORDERED: SINEMET 25-2501 EACH PO (12:51)
[2016-10-31] MEDS ORDERED: ZYLOPRIM100 MG PO (12:52)
[2016-10-31] MEDS ORDERED: COLACE-DPS100 MG PO (12:53)
[2016-10-31] MEDS ORDERED: COMPAZINE10 MG PO (12:53)
[2016-10-31] MEDS ORDERED: OCEAN NASAL MIS45 ML NS (12:54)
== END 2016-09-08 13:45 | disposition home or self-care (01) | DRG 853 ==
LOC: ER 12:04 → 3ICU 13:55 → 4PCU 09-03 10:16 → 3ICU 09-05 08:28 → 4PCU 09-07 18:50
PROVIDERS: ADMIT Internal Medicine
PROC: 02HV33Z Insertion of Infusion Device into Superior Vena Cava, Percutaneous Approach (ICD-10-PCS; principal; 2016-08-26)
PROC: 03HY32Z Insertion of Monitoring Device into Upper Artery, Percutaneous Approach (ICD-10-PCS; principal; 2016-08-26)
PROC: 3E0G76Z Introduction of Nutritional Substance into Upper GI, Via Natural or Artificial Opening (ICD-10-PCS; 2016-08-29)
PROC: 0BH17EZ Insertion of Endotracheal Airway into Trachea, Via Natural or Artificial Opening (ICD-10-PCS; 2016-08-29)
PROC: 5A1945Z Respiratory Ventilation, 24-96 Consecutive Hours (ICD-10-PCS; 2016-08-29)
PROC: 0B9G8ZX Drainage of Left Upper Lung Lobe, Via Natural or Artificial Opening Endoscopic, Diagnostic (ICD-10-PCS; 2016-08-31)
PROC: 0W993ZX Drainage of Right Pleural Cavity, Percutaneous Approach, Diagnostic (ICD-10-PCS; 2016-09-03)
DX: A41.9 Sepsis, unspecified organism (principal); R65.21 Severe sepsis with septic shock; J96.21 Acute and chronic respiratory failure with hypoxia; N17.0 Acute kidney failure with tubular necrosis; J69.0 Pneumonitis due to inhalation of food and vomit; I50.33 Acute on chronic diastolic (congestive) heart failure; J91.8 Pleural effusion in other conditions classified elsewhere; J15.6 Pneumonia due to other Gram-negative bacteria; I11.0 Hypertensive heart disease with heart failure; B37.0 Candidal stomatitis; J96.22 Acute and chronic respiratory failure with hypercapnia; E44.0 Moderate protein-calorie malnutrition; I42.9 Cardiomyopathy, unspecified; E27.40 Unspecified adrenocortical insufficiency; E87.0 Hyperosmolality and hypernatremia; E87.2 Acidosis; J44.1 Chronic obstructive pulmonary disease with (acute) exacerbation; I48.2 Chronic atrial fibrillation; G20 Parkinson's disease; E86.0 Dehydration; R13.10 Dysphagia, unspecified; R79.89 Other specified abnormal findings of blood chemistry; E11.9 Type 2 diabetes mellitus without complications; F17.210 Nicotine dependence, cigarettes, uncomplicated; M19.90 Unspecified osteoarthritis, unspecified site; F31.9 Bipolar disorder, unspecified; G89.4 Chronic pain syndrome; E83.39 Other disorders of phosphorus metabolism; K21.9 Gastro-esophageal reflux disease without esophagitis; E87.6 Hypokalemia; E83.42 Hypomagnesemia; E78.5 Hyperlipidemia, unspecified; M10.9 Gout, unspecified; G25.81 Restless legs syndrome; Q98.4 Klinefelter syndrome, unspecified; Z91.19 Patient's noncompliance with other medical treatment and regimen; Z86.711 Personal history of pulmonary embolism; Z98.1 Arthrodesis status; Z79.01 Long term (current) use of anticoagulants; Z86.718 Personal history of other venous thrombosis and embolism; Z85.118 Personal history of other malignant neoplasm of bronchus and lung; Z86.73 Personal history of transient ischemic attack (TIA), and cerebral infarction without residual deficits; Z96.653 Presence of artificial knee joint, bilateral; Z99.81 Dependence on supplemental oxygen

== ENCOUNTER 2016-09-09 23:10 | Inpatient (IN) | payer MEDICARE ==
[~2016-09-09] VITALS: Ht 180.3 cm; Wt 103.0 kg
--- NOTE | 2016-09-10 07:02 | ER ---
ADMIT: 09/10/2016 RM/LOC: 310 [facility] MR#: [id number] [address] [address] [place] [address] Emergency Room Report SEX: M AGE: 70 : 1945 DATE: 09/09/2016 CHIEF COMPLAINT: Hypotension. HISTORY OF PRESENT ILLNESS: The patient is a 70-year-old male, recently hospitalized from August 26 through for respiratory failure requiring intubation, healthcare-acquired pneumonia, acute kidney injury, and slightly elevated troponin, was discharged within 24 hours. He was evaluated at [facility] for hypotension. Case was discussed with Dr. Ian Henley and transferred. The patient denies any chest pain, nausea, vomiting, fevers, chills, or productive cough. Readily admits to smoking a pack of cigarettes since being discharged. States he is compliant with medications. Denies any urinary symptoms. Does admit to diffuse abdominal discomfort. PAST MEDICAL HISTORY: ILLNESSES: Chronic atrial fibrillation, anticoagulated, Xarelto; CHF; hypertension; O2 dependent COPD; CVA with left- sided deficit, minimal; hyperlipidemia; GERD; gout; restless legs syndrome; adrenal insufficiency; Parkinson disease, bipolar; squamous cell carcinoma of the lung with chemotherapy, no radiation or surgery; multiple DVTs, PEs, chronically anticoagulated; degenerative disk disease; degenerative joint disease; cervical spine; and Klinefelter syndrome. OPERATIONS: Recent mechanical ventilation, C5 through 7 anterior fusion with hardware in 2012, remote history of lumbar fusion with Gaona rods, and left total knee arthroplasty. ALLERGIES: OXYCODONE AND BEE STINGS. MEDICATIONS: Please see nurse's MAR. SOCIAL HISTORY: Greater [id number] history of smoking. Occasional alcohol, none recent. No illicit drugs. FAMILY HISTORY: Positive for carcinoid syndrome in father and coronary artery disease in father. REVIEW OF SYSTEMS: A 12-point review of systems negative for all other systems, illnesses, or operations except as outlined above. PHYSICAL EXAMINATION: VITAL SIGNS: Temp 97.6, pulse 88, respirations 23, BP 108/88 on admission, and 95% on 4 L. GENERAL: Anxious, pale, non-diaphoretic without jaundice or icterus. HEENT: Normocephalic. No evidence of epistaxis, rhinorrhea, or otorrhea. NECK: Supple without lymphadenopathy or thyromegaly. CHEST: Breath sounds equal with expiratory wheeze and crackles noted throughout. HEART: Regular rate and rhythm without murmur, gallop, or edema. Venous stasis dermatitis noted, legs. ABDOMEN: Obese, diffusely tender particularly left lower quadrant without mass or megaly. Bowel sounds hypoactive. No fluid wave noted. ADMIT: 09/10/2016 RM/LOC: 310 [facility] MR#: [id number] [address] [address] [place] [address] [place] [address] Emergency Room Report SEX: M AGE: 70 : 1945 BACK: No CVA tenderness noted. EXTREMITIES: No evidence of Homans sign, synovitis, or dermatitis. Venous stasis dermatitis noted in both legs. NEURO: EOMI. PERRLA. No evidence of drift, dysarthria, or ataxia. Gait not assessed. MENTAL STATUS: Alert, oriented, and cooperative without delusions, hallucinations, or abnormal thought content. MEDICAL DECISION MAKING: The patient was given 30 mL/kg fluid bolus with slight improvement in blood pressure. Did require transient Levophed IV piggyback for approximately 90 minutes and maintain MAP greater than 65. At the time of transfer, MAP was 72. Chest x-ray showed COPD findings, unchanged from recent. CT of the abdomen and pelvis showed sludge in the base of the gallbladder, but no other findings, particularly no diverticulitis. WBC 14.9 and platelets 118. CRP 2.01. Potassium 5.2, glucose 157, creatinine 1.4, peak creatinine was 6.1 on admission August 26. Discharged with a creatinine of 0.8. Troponin 0.67 down from recent troponin. Lactic 2.2. BN peptide 5162 down from peak BNP of well over 11,000. INR 1.06, procalcitonin 0.28. Urinalysis shows specific gravity of 1.024, trace leukocyte esterase, nitrite, 11 wbc's, hyaline casts also noted. The patient was given cefepime 2 g IV piggyback for possible UTI and cryptic sepsis. The patient's blood cultures on admission on August 26 grew out one of two bottles of staph hominis likely contaminant. The patient was also given Solu-Cortef 100 mg IV push, two DuoNebs, Solu-Medrol. No magnesium was given. Discussed findings with Dr. Ian Henley, who requested floor to call for orders due to the patient's presentation, findings, and intervention. 120 minutes of critical care is warranted. DIAGNOSES: 1. Adrenal insufficiency. 2. Acute kidney injury. 3. Acute exacerbation of chronic obstructive pulmonary disease. 4. Possible urinary tract infection. RECOMMENDATION: Admit inpatient PCU for Dr. Aldrich. ADMISSION/DISCHARGE CONDITION: Stable. The patient is a full code. Derek Drake MD/ annalise JOB #: [id number] CC: Romel Aldrich MD, Attending Physician Juan Wu MD, Family Physician
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
[2016-09-16] MEDS ORDERED: XARELTO20 MG PO (14:59)
[2016-09-16] MEDS ORDERED: MONTELUKAST SOD10 MG PO (14:59)
[2016-09-16] MEDS ORDERED: LYRICA75 MG PO (15:00)
[2016-09-16] MEDS ORDERED: CARBIDOPA-LEVO1 EAC7 PO (15:00)
[2016-09-16] MEDS ORDERED: REQUIP DPS2 MG PO (15:00)
[2016-09-16] MEDS ORDERED: MAGOX 400400 MG PO (15:00)
[2016-09-16] MEDS ORDERED: FAMOTIDINE20 MG PO (15:01)
[2016-09-16] MEDS ORDERED: CYTOTEC DPS200 MCG PO (15:01)
[2016-09-16] MEDS ORDERED: LASIX DPS40 MG PO (15:01)
[2016-09-16] MEDS ORDERED: KLOR-CON M2020 ME1 PO (15:03)
[2016-09-16] MEDS ORDERED: [UNRECOGNIZED DRUG - OTHER] PO (15:04)
[2016-09-16] MEDS ORDERED: DIGOXIN125 MCG PO (15:04)
[2016-09-16] MEDS ORDERED: ZOLOFT100 MG PO (15:04)
[2016-09-16] MEDS ORDERED: TOPROL XL DPS50 MG PO (15:04)
[2016-09-16] MEDS ORDERED: DULERA 200/58.8 GM IH (15:05)
[2016-09-16] MEDS ORDERED: SPIRIVA18 MCG IH (15:06)
[2016-09-16] MEDS ORDERED: DIFLUCAN DPS200 MG PO (15:06)
[2016-09-16] MEDS ORDERED: DELTASONE DPS10 MG PO (15:06)
[2016-09-16] MEDS ORDERED: NOVOLOG100 UNIT/2 SQ (15:07)
[2016-09-16] MEDS ORDERED: NOVOLIN N100 UNIT/1 SQ (15:07)
[2016-09-16] MEDS ORDERED: PROAIR RESPICL90 MCG IH (15:08)
[2016-09-16] MEDS ORDERED: HABITROL TD (15:08)
[2016-09-16] MEDS ORDERED: DUONEB DPS3 ML IH (15:09)
[2016-09-16] MEDS ORDERED: HYDROCODON-ACE1 EAC6 PO (15:13)
--- NOTE | 2016-09-16 21:18 | HP ---
ADMIT: 09/10/2016 RM/LOC: 310 [facility] MR#: [id number] [address] [address] [place] [address] History and Physical SEX: M AGE: 70 : 1945 DATE OF SERVICE: 09/10/2016 CHIEF COMPLAINT: Low blood pressures. HISTORY OF PRESENT ILLNESS: The patient is a 70-year-old gentleman with past medical history of congestive heart failure, COPD, prior lung cancer, and atrial fibrillation, on chronic anticoagulation, presents to [facility] Emergency Room as a transfer from [facility] Emergency Room. He was taken there by squad after being too weak to get out of his car at home. notes just spent greater than 3 hours in the car just because he was too weak to get out. The patient was recently discharged after a long hospital stay here in [place] from the August 26 to September 08 with healthcare-associated pneumonia, acute on chronic diastolic CHF, and large transudative pleural effusion, status post thoracentesis as well as some acute kidney injury. Throughout his prior hospital stay, he had been intubated with his pneumonia. He had issues with hypotension requiring IV fluids, difficulty with physical therapy due to chronic knee problems, and had refused multiple therapy interventions. In the emergency room in [place], he was noted to be hypotensive with blood pressures in the 60s and was noted to have an elevated white count at 14, and he was transferred here for further evaluation. Right now, the patient denies any chest pain, does note chronic shortness of breath, and describes some abdominal discomfort that his wonders if was his straining to sit up and get out of the car. No nausea or vomiting has been noted, has been eating okay, taking his medications, just describes some ongoing issues with right knee pain. In our emergency room here, he is noted to be hypotensive with some blood pressures transiently in the 90s requiring some Levophed and some IV fluids. As mentioned, he is admitted for further evaluation and treatment. For past medical history, social history, and family history, please see previously dictated H and P and discharge summary. CURRENT HOME MEDICATIONS: Include: 1. Xarelto. 2. Requip. 3. Singulair. 4. Lyrica. 5. Sinemet. 6. Mag-Ox. 7. Pepcid. 8. Magnesium. 9. Cytotec. 10.Lasix. 11.Potassium. 12.Digoxin. 13.Prednisone. 14.Metoprolol. 15.Sertraline. 16.Selegiline. ADMIT: 09/10/2016 RM/LOC: 310 [facility] MR#: [id number] [address] [address] [address] [place] [address] History and Physical SEX: M AGE: 70 : 1945 17.Hydrocodone. 18.Diflucan. 19.Dulera. 20.Spiriva. 21.Novolin N and Novolin R sliding scale. 22.Habitrol. 23.ProAir. REVIEW OF SYSTEMS: As noted above. All other systems reviewed and are negative. PHYSICAL EXAMINATION: VITAL SIGNS: Blood pressures, he has systolics in between 100 and 110 with MAPs in the low 70s, pulses are in the 80s, and respirations 18. He is afebrile right now. GENERAL: This is a gentleman. Appears much older than his stated age. He is no apparent distress. He is a little drowsy, but arouses and answers questions. HEENT: Normocephalic and atraumatic. Mucous membranes are all dry. NECK: Supple. LUNGS: Coarse. He has some rales at the bases bilaterally. HEART: Irregularly regular. ABDOMEN: Soft. Some mild diffuse tenderness is noted. There is no rebound. Positive bowel sounds throughout. EXTREMITIES: No significant edema is noted. NEUROLOGICAL: No obvious focal deficits are noted. Actually I am not picking up much of a resting tremor right now. LAB WORK: Reviewed. His magnesium was 2.3. His lactic acid 2.2. CK 47, MB 3.7, troponin 0.067. BNP 5162. Procalcitonin is 0.28. AST 43, ALT 39, alkaline phosphatase 115, and total bilirubin 0.5. His hemoglobin is 15. His white count 14.9, and 118,000 platelets. Sodium 139, potassium 5.2, BUN is 34, creatinine 1.4, and his bicarb is 29. IMAGING: CT scan of the abdomen and pelvis showed no acute findings. There was a small amount of gallbladder sludge and/or stones with small fat containing umbilical hernia. Lower levels of the lungs do not show me any obvious effusion. No obvious infiltrates are noted. EKG in our emergency room was atrial fibrillation at 84 beats per minute. I do not notice any significant ST- or T-wave segment changes at this point. ASSESSMENT AND PLAN: 1. Hypotension and weakness. 2. Acute kidney injury. 3. Mild lactic acidosis. 4. Questionable abdominal pain with some gallbladder sludge on CT. 5. Chronic obstructive pulmonary disease. 6. Chronic respiratory failure. 7. Atrial fibrillation, on chronic anticoagulation. ADMIT: 09/10/2016 RM/LOC: 310 [facility] MR#: [id number] [address] [place] [phone] TAMAR MUR[place] [address] History and Physical SEX: M AGE: 70 : 1945 8. Chronic diastolic congestive heart failure. 9. Parkinson's. At this time, the patient is doing much better hemodynamically after a little bit of fluids. He is off Levophed right now. I do wonder if he could have some relative adrenal insufficiency. He did have some trouble with hypertension his last hospitalization. I will be covering him with Solu-Cortef 100 mg q.6 hours IV right now. We will trend his lactic acids out. With his questionable gallbladder sludge and abdominal discomfort, we are going to cover him with some cefepime now and plan on ultrasounding his gallbladder later. He is not currently nauseated. We will have plans for pain control and antiemetics as needed, gentle IV fluids given his diastolic heart failure. We will get him back on the remainder of his home medications, have him seen by therapy, and follow him closely. Ian Henley MD/ annalise JOB #: [id number] CC: Romel Aldrich, Attending Physician Juna Wu, Family Physician
--- NOTE | 2016-10-02 12:35 | CO ---
ADMIT: 09/10/2016 RM/LOC: [address] [facility] MR#: [id number] [id number] [id number] [place] [address] Consultation SEX: M AGE: 70 : 1945 DATE OF CONSULTATION: 09/13/2016 ATTENDING PHYSICIAN: Romel Aldrich CONSULTING PHYSICIAN: Santy Brock MD REASON FOR CONSULTATION: Short run of nonsustained tachycardia. HISTORY OF PRESENT ILLNESS: Rui is a 70-year-old, male, whom we follow for history of diastolic heart failure, history of tachycardia induced cardiomyopathy with normalized EF, permanent atrial fibrillation, who was admitted several days ago with complains of weakness and hypotension. Upon arrival, he was originally treated with IV fluids and Levophed, but is off of any pressors at this current time. He is currently being worked up for and treated for adrenal insufficiency. He has a history of Klinefelter syndrome and hypogonadism. No history of coronary artery disease. History of hyperlipidemia, hypertension, diabetes, he is a current every day smoker and has smoked for 50 plus years. We were consulted this morning after telemetry demonstrated several short runs of a wide-complex tachycardia. He is permanently in atrial fibrillation/atrial flutter but last night around midnight to 1 a.m., there were several runs of 5- 6 beat wide-complex tachycardias that were monomorphic and irregular in nature. He was asymptomatic. He denies any worsening shortness of breath. He denies any recent chest pain. He denies any dizziness or lightheadedness. Denies any palpitations unless his heart rate becomes uncontrolled with his atrial fibrillation. He denies any lower extremity edema. His weight is relatively stable from when he was discharged from the hospital. He was in the hospital August 27 through Ce 17 for acute hypoxic respiratory failure secondary to healthcare acquired pneumonia, which required intubation. At that time, he also became volume overload with his diastolic heart failure and had a transudative pleural effusion, which required thoracocentesis. Rui states that his last stress test was in 2008. He has not had an ischemic workup since that time. He follows with Dr. Asaf Durand on a regular basis in [place], [place] and is setup for an appointment with him in the coming week with a 24-hour Holter monitor prior to monitor his heart rate. PAST MEDICAL HISTORY: 1. Diastolic heart failure. 2. COPD. 3. History of lung cancer. 4. Permanent atrial fibrillation. 5. Diabetes. 6. Chronic respiratory failure. 7. Parkinson's disease. 8. Klinefelter syndrome. 9. Hypogonadism. 10.History of stroke. 11.DVT/PE. ADMIT: 09/10/2016 RM/LOC: [address] [facility] MR#: [id number] [address] [id number] [place] [address] [place] [address] Consultation SEX: M AGE: 70 : 1945 12.History of tachycardia-induced cardiomyopathy, EF is now preserved. 13.Hypertension. 14.Hyperlipidemia. SURGICAL HISTORY: 1. Left knee. 2. Back surgery. 3. Neck surgery. 4. Right rotator cuff surgery. 5. Right knee surgery. 6. Appendectomy. HOME MEDICATIONS: 1. Xarelto 20 mg by mouth daily. 2. Requip 2 mg 1-2 tabs by mouth at bedtime as needed. 3. Singulair 10 mg by mouth daily. 4. Lyrica 75 mg 2 tablets by mouth b.i.d. 5. Sinemet 25/250, 1 tablet by mouth b.i.d. 6. Mag oxide 400 mg by mouth b.i.d. 7. Pepcid 20 mg by mouth b.i.d. 8. Cytotec 200 mcg by mouth b.i.d. 9. Furosemide 40 mg by mouth daily. 10.Potassium 40 mEq by mouth b.i.d. 11.Digoxin 0.125 mg, take 1/2 tablet by mouth daily. 12.Prednisone 10 mg by mouth daily. 13.Metoprolol 150 mg by mouth b.i.d. 14.Sertraline 100 mg by mouth b.i.d. 15.Selegiline 5 mg by mouth daily. 16.Hydrocodone 10/325 mg by mouth daily. 17.Diflucan 200 mg by mouth daily. 18.Dulera 200/5, 8.8 g 2 puffs inhaled b.i.d. 19.Spiriva 80 mcg by mouth daily. 20.Novolin 5 units subcu daily. 21.NovoLog sliding scale. 22.Habitrol 14 mg by mouth daily. 23.ProAir 2 puffs inhaled 4 times daily as needed. ALLERGIES: OXYCODONE. FAMILY HISTORY, SOCIAL HISTORY, REVIEWED WITH THE PATIENT AND UNCHANGED FROM PREVIOUS. REVIEW OF SYSTEMS: GENERAL: Denies fatigue, fever, chills, sweats, rash, or weight loss. EYES: Denies double vision, blurred vision, cataracts, or glaucoma. ENT: Denies hearing loss or problems with nose, mouth or throat. PULMONARY: Denies cough, sputum production, asthma, emphysema or bronchitis. Denies snoring loudly, wakefulness at night, or fatigue upon awakening. ADMIT: 09/10/2016 RM/LOC: [address] [facility] MR#: [id number] [address] [place] [id number] [place] [address] Consultation SEX: M AGE: 70 : 1945 History of chronic hypoxic respiratory failure. GASTROINTESTINAL: Denies heartburn or difficulty swallowing. No change in bowel habits. Denies dark or bloody stools. No history of ulcers, hiatal hernia, or gallbladder or liver disease. He did have some abdominal pain on arrival and then CT scan noted of some abdominal sludge. GENITOURINARY: Denies dysuria, hematuria, nocturia, urinary tract infection, or kidney stones. Denies history of renal insufficiency or failure. MUSCULOSKELETAL: Denies history of arthritis or gout. Denies muscle or joint pains. ENDOCRINE: Denies history of thyroid dysfunction. History of diabetes. HEMATOLOGIC: Denies history of anemia or easy bruising. History of DVT and PE as well as lung cancer, which has been in remission for 5 years. NEUROLOGIC: Denies chronic headaches, dizziness, syncope, seizures or numbness or tingling. History of stroke. PSYCHIATRIC: Per his chart, he has a poor historian. PHYSICAL EXAMINATION: Per Dr. Brock. VITAL SIGNS: Temperature 96.8, pulse 92, respirations 24, O2 saturation 89% on 1 L via nasal cannula, blood pressure 108/82. SKIN: [place], warm and dry. EYES: Sclerae clear. No xanthelasmas. ENT: Oral mucosa is pink and moist. No jugular venous distention or carotid bruits. CHEST: Coarse breath sounds on expiration bilaterally. HEART: Regular rate and rhythm. Normal S1, S2. No murmurs, rubs or gallops. ABDOMEN: Soft and nontender, obese. MUSCULOSKELETAL: Gait is normal. EXTREMITIES: Peripheral pulses palpable. No clubbing, cyanosis or edema. PSYCHIATRIC: Alert and oriented. Mood and affect are appropriate. LABORATORY AND X-RAY DATA: Sodium 140, potassium 3.9, BUN 25, creatinine 0.9, glucose 134. Troponin 3 days ago was 0.05. Hemoglobin A1c was 8.0. IMAGING: ECG/telemetry demonstrates atrial fibrillation/intermittent atrial flutter with a 4-1 block with heart rates in the 90s. He had 2 runs of a wide- complex tachycardia that was monomorphic and irregular. These runs about 5-6 beats. ASSESSMENT: This is per Dr. Brock. ADMIT: 09/10/2016 RM/LOC: [address] [facility] MR#: [id number] [address] [address] [place] [address] Consultation SEX: M AGE: 70 : 1945 1. Nonsustained ventricular tachycardia versus atrial fibrillation with aberrancy. 2. Hypotension. 3. Permanent atrial fibrillation. 4. History of nonischemic cardiomyopathy. PLAN/RECOMMENDATIONS: Per Dr. Brock, no concern with rhythm at this point in time. If more sustained, he will need a workup in the future. With his low blood pressure and if no treatable causes found, we could consider adding on midodrine for intervention. Thank you for allowing us to participate in the care of this patient. RACHELL Smith / Santy Brock MD / annalise JOB #: [id number] CC: Romel Aldrich, Attending Physician Juan Wu, Family Physician
[2016-10-31] MEDS ORDERED: LEVAQUIN DPS750 MG PO (12:50)
[2016-10-31] MEDS ORDERED: PROTONIX40 MG PO (12:51)
[2016-10-31] MEDS ORDERED: SINEMET 25-2501 EACH PO (12:51)
[2016-10-31] MEDS ORDERED: ZYLOPRIM100 MG PO (12:52)
[2016-10-31] MEDS ORDERED: COLACE-DPS100 MG PO (12:53)
[2016-10-31] MEDS ORDERED: COMPAZINE10 MG PO (12:53)
[2016-10-31] MEDS ORDERED: OCEAN NASAL MIS45 ML NS (12:54)
== END 2016-09-15 09:05 | disposition home or self-care (01) | DRG 643 ==
LOC: ER 23:10 → 3ICU 09-10 02:20 → 5MS 09-10 02:20 → 3ICU 09-10 08:49 → 5MS 09-12 01:33
PROVIDERS: ADMIT Internal Medicine
DX: E27.40 Unspecified adrenocortical insufficiency (principal); J96.21 Acute and chronic respiratory failure with hypoxia; N17.9 Acute kidney failure, unspecified; I47.2 Ventricular tachycardia; E87.2 Acidosis; I95.9 Hypotension, unspecified; I11.0 Hypertensive heart disease with heart failure; I50.32 Chronic diastolic (congestive) heart failure; G20 Parkinson's disease; J44.1 Chronic obstructive pulmonary disease with (acute) exacerbation; I48.92 Unspecified atrial flutter; K83.8 Other specified diseases of biliary tract; E11.9 Type 2 diabetes mellitus without complications; F17.210 Nicotine dependence, cigarettes, uncomplicated; I48.2 Chronic atrial fibrillation; E78.5 Hyperlipidemia, unspecified; K21.9 Gastro-esophageal reflux disease without esophagitis; M10.9 Gout, unspecified; G25.81 Restless legs syndrome; M19.90 Unspecified osteoarthritis, unspecified site; M50.30 Other cervical disc degeneration, unspecified cervical region; Q98.4 Klinefelter syndrome, unspecified; Z23 Encounter for immunization; K42.9 Umbilical hernia without obstruction or gangrene; F31.9 Bipolar disorder, unspecified; Z85.118 Personal history of other malignant neoplasm of bronchus and lung; Z86.718 Personal history of other venous thrombosis and embolism; Z96.652 Presence of left artificial knee joint; Z86.711 Personal history of pulmonary embolism; Z79.01 Long term (current) use of anticoagulants; Z98.1 Arthrodesis status; Z86.73 Personal history of transient ischemic attack (TIA), and cerebral infarction without residual deficits; Z82.49 Family history of ischemic heart disease and other diseases of the circulatory system; Z79.4 Long term (current) use of insulin; Z91.19 Patient's noncompliance with other medical treatment and regimen